=== PATIENT | male | born 1955 | race Caucasian/White ===

== ENCOUNTER 2016-07-29 06:21 | Inpatient (IN) | payer BC ==
[2016-07-12 14:29] VITALS: BP_SYST 122; RESP 14; TEMP 98.7
[2016-07-12 14:30] VITALS: BMI 22.1
[2016-07-29] VITALS (28 sets, daily range): BP systolic 96–119; RESP 12–26; TEMP 97.7–99.5; Ht 162.6 cm; Wt 58.5 kg
[~2016-07-29] VITALS: Ht 162.6 cm; Wt 58.5 kg
[2016-07-29] MEDS ORDERED: CEFAZOLIN 2,000 MG in SODIUM CHLORIDE 0.9% 100 ML IV ONE (06:30)
[2016-07-29] MEDS ORDERED: MIDAZOLAM 2 MG/2 ML INJ IV ONE (06:50)
[2016-07-29] MEDS ORDERED: GLYCOPYRROLATE 0.2 MG/ML VIAL IV ONE ×2 (06:50→13:36)
[2016-07-29] MEDS ORDERED: LIDOCAINE 1% BUFFERED 1 ML SYR INTRADERM PRN (06:50)
[2016-07-29] MEDS: SODIUM CHLORIDE 0.9% 1,000 ML IV SCH ×2 (07:03→22:16)
[2016-07-29] MEDS ORDERED: MORPHINE 2 MG/ML SYR IV PRN (08:40)
[2016-07-29] MEDS ORDERED: ONDANSETRON 4 MG VIAL IV PRN (08:40)
[2016-07-29] MEDS ORDERED: MEPERIDINE 25 MG/ML IV PRN (08:40)
[2016-07-29] MEDS ORDERED: OXYCODONE 5 MG TAB PO PRN (08:40)
[2016-07-29] MEDS ORDERED: MORPHINE 4 MG/ML SYR IV PRN (08:40)
[2016-07-29] MEDS ORDERED: SODIUM CHLORIDE 0.9% 1,000 ML IV SCH (11:55)
[2016-07-29] MEDS ORDERED: ACETAMINOPHEN 325 MG TAB PO PRN (11:55)
[2016-07-29] MEDS: DILAUDID 1 MG/ML AMP IV PRN ×2 (12:36→12:48)
[2016-07-29] MEDS: MORPHINE 2 MG/ML SYR IV PRN ×3 (13:25→22:58)
[2016-07-29] MEDS ORDERED: ESMOLOL 100 MG/10 ML VL IV ONE (13:36)
[2016-07-29] MEDS ORDERED: NEOSTIGMINE 10 MG/10 ML VIAL IV ONE (13:36)
[2016-07-29] MEDS ORDERED: PHENYLEPHRINE 10 MG/ML VIAL IV ONE (13:36)
[2016-07-29] MEDS ORDERED: DILAUDID 1 MG/ML AMP IV ONE (13:36)
[2016-07-29] MEDS ORDERED: PROPOFOL 20 ML PER ML IV ONE (13:36)
[2016-07-29] MEDS ORDERED: ROCURONIUM 50 MG VIAL IV ONE (13:36)
[2016-07-29] MEDS ORDERED: DEXAMETHASONE 4 MG/ML VIAL IV ONE (13:36)
[2016-07-29] MEDS ORDERED: ONDANSETRON 4 MG VIAL IV PUSH ONE (13:36)
[2016-07-29] MEDS ORDERED: LIDOCAINE 2% SYR 5 ML IV ONE (13:36)
[2016-07-29] MEDS ORDERED: FENTANYL 100 MCG/2 ML AMP IV ONE (13:36)
[2016-07-29] MEDS ORDERED: BUPIVACAINE 0.5% PF 30 ML NERVEBLOCK ONE (13:53)
[2016-07-29] MEDS: PANTOPRAZOLE 40 MG VIAL IV SCH (14:44)
[2016-07-29] MEDS: CEFAZOLIN 1,000 MG in DEXTROSE 5% 50 ML IV SCH ×2 (16:03→22:59)
[2016-07-29] MEDS ORDERED: ONDANSETRON 4 MG VIAL IV PUSH PRN (16:50)
[2016-07-29] MEDS: PROMETHAZINE 25 MG/ML VIAL IV PRN (18:17)
[2016-07-29] MEDS: Atorvastatin 20 MG TAB PO SCH (21:04)
[2016-07-29] MEDS: DOCUSATE SOD 100 MG CAP PO SCH (21:04)
[2016-07-29] MEDS: Carvedilol 6.25 MG TAB PO SCH (21:04)
[2016-07-29] MEDS: PHENYTOIN 100 MG CAP PO SCH (21:04)
[2016-07-30] VITALS (13 sets, daily range): BP systolic 106–130; RESP 16–28; TEMP 98–98.7
[2016-07-30] MEDS: PROMETHAZINE 25 MG/ML VIAL IV PRN (03:11)
[2016-07-30] MEDS: MORPHINE 2 MG/ML SYR IV PRN (03:12)
[2016-07-30] MEDS: SODIUM CHLORIDE 0.9% 1,000 ML IV SCH (06:28)
[2016-07-30] MEDS ORDERED: SODIUM CHLORIDE 0.9% 1,000 ML IV SCH (07:55)
[2016-07-30] MEDS: Carvedilol 6.25 MG TAB PO SCH ×2 (08:07→21:52)
[2016-07-30] MEDS: DOCUSATE SOD 100 MG CAP PO SCH ×2 (08:07→21:52)
[2016-07-30] MEDS: CEFAZOLIN 1,000 MG in DEXTROSE 5% 50 ML IV SCH ×2 (08:08→17:00)
[2016-07-30] MEDS: PANTOPRAZOLE 40 MG VIAL IV SCH (08:08)
[2016-07-30] MEDS: OXYCODONE 5 MG TAB PO PRN ×2 (08:19→21:51)
[2016-07-30] MEDS: Atorvastatin 20 MG TAB PO SCH (21:52)
[2016-07-30] MEDS: PHENYTOIN 100 MG CAP PO SCH (21:53)
[2016-07-31] VITALS (17 sets, daily range): BP systolic 118–149; RESP 15–18; TEMP 97.9–101.5
[2016-07-31] MEDS: CEFAZOLIN 1,000 MG in DEXTROSE 5% 50 ML IV SCH ×3 (00:45→17:29)
[2016-07-31] MEDS ORDERED: MISSING DOSE XX ONE (08:30)
[2016-07-31] MEDS: PANTOPRAZOLE 40 MG VIAL IV SCH (09:04)
[2016-07-31] MEDS: DOCUSATE SOD 100 MG CAP PO SCH ×2 (09:04→21:27)
[2016-07-31] MEDS: Carvedilol 6.25 MG TAB PO SCH ×2 (09:04→21:28)
[2016-07-31] MEDS: SODIUM CHLORIDE 0.9% 1,000 ML IV SCH (21:25)
[2016-07-31] MEDS: PHENYTOIN 100 MG CAP PO SCH (21:28)
[2016-07-31] MEDS: Atorvastatin 20 MG TAB PO SCH (21:28)
[2016-08-01] MEDS: CEFAZOLIN 1,000 MG in DEXTROSE 5% 50 ML IV SCH ×2 (00:53→08:05)
[2016-08-01 03:25] VITALS: BP_SYST 130; RESP 18; TEMP 97.9
[2016-08-01 07:39] VITALS: BP_SYST 122; RESP 18; TEMP 98
[2016-08-01] MEDS: Carvedilol 6.25 MG TAB PO SCH ×2 (08:04→21:02)
[2016-08-01] MEDS: PANTOPRAZOLE 40 MG VIAL IV SCH (08:04)
[2016-08-01] MEDS: DOCUSATE SOD 100 MG CAP PO SCH ×2 (08:04→21:02)
[2016-08-01 10:57] VITALS: BP_SYST 124; RESP 16; TEMP 98.2
[2016-08-01] MEDS: Furosemide 40 MG TAB PO SCH (14:44)
[2016-08-01 15:11] VITALS: BP_SYST 118; RESP 16; TEMP 97.9
[2016-08-01 19:42] VITALS: BP_SYST 117; RESP 16; TEMP 98
[2016-08-01] MEDS: PHENYTOIN 100 MG CAP PO SCH (21:02)
[2016-08-01] MEDS: Atorvastatin 20 MG TAB PO SCH (21:02)
[2016-08-01 22:55] VITALS: BP_SYST 121; RESP 16; TEMP 98.3
[2016-08-02 03:15] VITALS: BP_SYST 121; RESP 14; TEMP 98
[2016-08-02] MEDS ORDERED: PANTOPRAZOLE 40 MG TAB PO SCH (07:00)
[2016-08-02 07:25] VITALS: BP_SYST 130; RESP 16; TEMP 97.3
[2016-08-02] MEDS: Carvedilol 6.25 MG TAB PO SCH (08:40)
[2016-08-02] MEDS: Furosemide 40 MG TAB PO SCH (08:40)
[2016-08-02] MEDS: DOCUSATE SOD 100 MG CAP PO SCH (08:41)
[2016-08-02 11:01] VITALS: BP_SYST 122; RESP 16; TEMP 97.1
[2016-08-02 12:18] VITALS: BP_SYST 122; RESP 16; TEMP 97.1
== END 2016-08-02 15:18 | disposition home or self-care (01) | DRG 657 ==
LOC: ENRESERVDT → ENRESERVTM → ENPENDDIS 06:21 → SDS 06:21 → CCU 13:10 → 5THE 07-30 10:54
PROVIDERS: ADMIT Urology; ATTEND Urology
PROC: 0TT14ZZ Resection of Left Kidney, Percutaneous Endoscopic Approach (ICD-10-PCS; principal; 2016-07-29 07:21)
CPT/HCPCS: 71010; 80048; 83735; 85014; 85018; 86850; 86900; 86901; 88307; 93005